=== PATIENT | male | born 1940 | race Caucasian/White ===

== ENCOUNTER 2024-10-31 12:18 | Inpatient (IN) | payer MEDICARE, SELFPAY ==
[2024-10-31] VITALS (42 sets, daily range): BP systolic 58–150; BP diastolic 28–100; BMI 31.5
[2024-10-31] MEDS: LOW STRENGTH ASPIRIN 81 MG PO (07:25)
[2024-10-31 08:54] LABS: ACT-LR - POC 374 Seconds (116-155)
[2024-10-31 09:24] LABS: ACT-LR - POC 319 Seconds (116-155)
--- NOTE | 2024-10-31 09:51 | ITS.CL.ANGIO ---
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
Angioplasty
Procedure Report:
CARDIAC CATHETERIZATION REPORT
Date of Procedure: 10/31/2024
Referring: Lavell Ramirez D.O.
INDICATION: Known coronary artery disease, accelerating angina, including rest angina.
PROCEDURE:
1. Left heart catheterization.
2. Coronary angiography.
3. Successful IFR of the proximal LAD.
4. Successful PCI of the mid and proximal RCA subtotal occlusion.
ACCESS:
6 [place] right common femoral artery using a modified Seldinger technique with a micropuncture kit under ultrasound guidance.
CATHETERS:
1. 5 [place] JR4.
2. 5 [place] JL 4.
3. 6 [place] JL 4 guiding catheter.
4. 6 [place] AL 0.75 guiding catheter.
HEMODYNAMIC DATA
Weight (kg): 96.6
AO (s/d/x, mmHg): 155/66/96
LV (s/x mmHg): 158/20
LEFT VENTRICULOGRAPHY: Not performed.
CORONARY ANGIOGRAPHY
Dominance: Right.
Left Main: Relatively short, bifurcating vessel. There is no coronary artery disease.
LAD: Normal size vessel with several small diagonals. There is a 60-70% lesion in the proximal vessel, immediately after the origin. There are at least moderate luminal irregularities with dense calcification throughout the remainder of the
vessel.
Ramus: Congenitally absent.
Circumflex: Large size, nondominant vessel giving rise to 1 large obtuse marginal which subsequently bifurcates into an upper and lower branch. A patent stent is visible in the obtuse marginal, spanning the bifurcation with a 90% lesion in the
ostium of the upper branch, likely related to plaque shift from the previous stent placement with ANTOLIN-3 flow.
RCA: Large size, dominant vessel with 99% subtotal occlusion in the proximal vessel into the mid vessel and faint collaterals from the left system, a 50% lesion in the distal RCA and a 60% lesion in the ostium of the RPDA, too small for
intervention.
INTERVENTION(S)
1. Successful IFR of the 60-70% proximal LAD lesion, demonstrating nonocclusive disease (IFR = 0.95).
2. Successful IVUS guided PCI of the 99% subtotal occlusion of the proximal and mid RCA (overlapping Medtronic Jean Paul Erath 3.0 x 38 ESTHER, 3.0 x 22 ESTHER, postdilated with a 3.25 NC balloon) with reduction in stenosis to 0%, restoring ANTOLIN-3 flow.
Narrative:
The decision was made to perform physiologic testing. The diagnostic catheter was removed over a wire and exchanged for a(n) 6 [place] JL 4 guiding catheter. The guiding catheter was advanced into the ascending aorta and seated in the left main
coronary artery. Additional heparin was given to obtain an ACT greater than 250 seconds. An iFR wire was zeroed outside of the body, then inserted into the guiding sheath. The wire was advanced and the transducer was normalized just outside of the
guiding catheter tip. The wire was advanced into the mid LAD. Three iFR measurements were taken. The lesion was determined to be nonocclusive (0.95).
We then turned our attention to the proximal RCA. The decision was made to proceed with percutaneous coronary intervention. The 6 [place] JL 4 guiding catheter was removed over a wire and a 6Fr AL 0.75 guiding catheter was advanced to the aortic
root and seated in the right coronary artery. Additional heparin was given and a Power Turn Flex wire was advanced into the proximal RCA, but would not cross the lesion. A whisper wire was advanced with a microcatheter support. With this support,
the whisper wire was able to cross the lesion and advanced into the distal RCA. The wire tip was freely mobile. The microcatheter was advanced through the lesion and the whisper wire was withdrawn. Micro injection through the microcatheter
confirmed that the microcatheter was intraluminal. The power turn flex wire was advanced through the microcatheter, which was then removed using a wire pinning technique.
During the course of wire exchange, the patient began to experience chest discomfort with some EKG changes. Even after removal of the microcatheter, the patient was still complaining of discomfort. Angiography confirmed that the wire was occlusive
across the lesion. Additional fentanyl and nitroglycerin were administered.
The 99% subtotal proximal RCA lesion was predilated with a 2.0 x 12 semi-compliant balloon to 12 geeta. Angiography showed mormonism of ANTOLIN-3 flow. The patient began to experience bradycardia with some relative hypotension. The patient was given
a bolus of IV fluids and atropine 1 mg IV. This restored normotension and an appropriate heart rate. Norepinephrine was primed and ready to administer, but the patient's blood pressure stabilized before administration.
A 3.0 x 20 semicompliant balloon was advanced into the mid RCA. The mid and proximal RCA were predilated to 12 geeta after angiography showed extension of the plaque burden into the mid vessel.
The semi-compliant balloon was removed and a Medtronic Jean Paul Erath 3.0 x 38 drug-eluting stent was advanced into the mid RCA, extending into the proximal RCA, around the proximal RCA curve. The stent was deployed at 12 atmospheres. The stent
balloon was removed.
The decision was made to perform intracoronary imaging. An IVUS catheter was advanced through the guiding catheter and into the ostium of the artery. Ring down was performed once the imaging crystal was no longer inside of the guiding catheter. The
IVUS catheter was advanced into the mid RCA, but could not advance beyond a bend in the mid RCA. Intravascular ultrasound was performed in a retrograde fashion using a slow pullback. Intracoronary imaging demonstrated good stent apposition with some
very mild underexpansion in the proximal stent. This also demonstrated significant plaque burden in the proximal RCA and ostial RCA.
The decision was made to proceed with percutaneous coronary intervention of the proximal/ostial RCA. The IVUS catheter was removed and a 3.0 x 22 drug-eluting stent was advanced. Meticulous care was taken while positioning the stent with the
distal aspect overlapping the distal stent in the proximal aspect at the ostium of the RCA. The stent was deployed at 12 atmospheres. The stent balloon was removed. A 3.25 x 20 noncompliant balloon was advanced into the stent with the assistance of
a guide liner and the entire stented segment was postdilated to 16 atmospheres.
IVUS was repeated throughout the entire segment, demonstrating good stent apposition and expansion, also confirming an intraluminal corkscrew segment which was responsible for the difficulty in passing the catheter initially.
The IVUS catheter was withdrawn. Angiography was performed in orthogonal views, confirming good stent expansion and an excellent angiographic result. The coronary wire was withdrawn and the guide was disengaged from the artery. The catheter was
removed over a standard J-wire.
The femoral artery was sealed with a 6 [place] Angio-Seal.
Approximately 10 minutes after completion of the procedure, I was called back into the room for an abrupt change in mental status. The patient, who had been conversant and coherent throughout the entire procedure was now unresponsive to commands.
He was able to speak, but not incoherent or complete sentences. He had full motor activity of his upper and lower extremities on examination. There was no isolating or lateralizing neurologic findings. The patient was transferred back to the Cath
Lab holding area and a stroke alert was called.
Closure Device: 6 [place] Angio-Seal.
Radiation (mGy): 1871.93
DAP (cm2.Gy): 133.88
Fluoroscopy time (minutes): 22.1
Sedation time (minutes): 99
CONCLUSIONS
1. Right dominant circulation with a patent stent in the obtuse marginal, and 90% lesion in the small upper branch of OM1 due to plaque shift with ANTOLIN-3 flow, a nonocclusive 60-70% lesion in the proximal LAD (IFR = 0.95), a 50% lesion in the
distal RCA, a 60% lesion in the ostium of a small, nonintervenable RPDA and a 99% subtotal occlusion of the proximal RCA leading into the mid vessel, status post successful IVUS guided PCI (overlapping Medtronic Minoa Erath 3.0 x 38 ESTHER, 3.0 x 22
ESTHER, postdilated with a 3.25 NC balloon) with reduction in stenosis to 0%, restoring ANTOLIN-3 flow.
2. Moderately elevated filling pressures (LVEDP = 20 mmHg at 96.6 kg).
3. Abrupt change in mental status, concerning for CVA. History of CVA after cardiac catheterization in October [address] [facility].
RECOMMENDATIONS:
1. Expectant management after cardiac catheterization via right common femoral approach.
2. Limited weight bearing for one week.
3. Dual antiplatelet therapy with aspirin and clopidogrel for at least 12 months, followed by aspirin indefinitely.
4. Stroke alert called. Neurology at bedside. CT/CTA ordered.
Copy to: Lavell Ramirez D.O., Mike Campos D.O.
Lloyd Rowe DO, FACC, FACP
--- NOTE | 2024-10-31 10:04 | RR ---
At end of cath, patient began to become agitated and aphasic. MD made aware. A Rapid Response was called on this patient, please see Rapid Response form.
[2024-10-31 10:24] LABS: Glucose - Point of Care 161 mg/dl (70-99)
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
[2024-10-31] MEDS: NSS (PRESERVATIVE FREE) 1 ML IV (10:45)
[2024-10-31] MEDS: ATIVAN 2 MG IV (10:45)
--- NOTE | 2024-10-31 11:00 | PTCARENOTE ---
Assumed care for pt post procedural with MAJOR ACCOUNT MANAGER/stroke alert. He is thrashing in the bed attempting to sit up. Unable to follow simple commands and follow instructions. Unable to perform NIH due to pt's mental status and thrashing He is moaning,
grimacing, with incomprehensible words. 6 staff members restraining pt to keep him from harming himself or developing a right femora hematoma. Pupils +2 sluggishly reactive. He is very strong all 4 extremities. 4 point soft restraints applied as
ordered by Glass Technicianjessica at the bedside upon pt arrival. Right knee immobilizer placed to prevent pt from bending until BR completed. +right DP pulses, weak right PT pulses. Right femoral dressing CDI, groin soft, no hematoma appreciated. It
does look slightly more swollen from the left groin. Right FA#20g protective catheter flushed and patent, see MAR for MEDs. Precedex was titrated as ordered. HR 84 and SR. Pt was reoriented unsuccessfully multiple times as he continue to attempt
tosit up and grab at the ceiling and staff members while phlebotomy being performed. #25 condom catheter placed. Called for daughter, Priscilla Oliveira to come to the bedside. Safe environment maintained. RN remains with pt at this time.
[2024-10-31] MEDS: HALDOL 2 MG IV (11:18)
[2024-10-31] MEDS: PRECEDEX 100 IV (11:19)
[2024-10-31 11:39] LABS: INR 1.14; PT 14.9 Sec (11.4-14.6)
[2024-10-31 12:07] LABS: APTT 168.1 Sec (23.4-35.0)
--- NOTE | 2024-10-31 12:07 | HPS.HSE ---
Family Physician
-
Family Physician: Mike Campos
Chief Complaint
-
Altered mental status
History of Present Illness
Patient is 84 years old male with CAD, prior postcatheterization CVA who underwent elective catheterization today with stenting to RCA. Over the procedure patient became agitated, disoriented with garbled speech. According to staff patient was not
able to converse and follow commands, became agitated around 9:[address] of the head showed no acute abnormalities other than old infarct. CT angiogram showed no large vessel thrombosis/occlusion
Upon transfer to intensive care unit patient remains agitated and disoriented.
Medical History
Past Medical History
Past Medical History: Reports CAD, CVA, Hypercholesterolemia and Other (Cognitive disorder)
Past Surgical History: Reports Other (Catheterization)
Social History
Tobacco: Non-smoker
Drug: None
Living: With Family
Family History
Family History: Not pertinent
Allergies / Home Medications
Allergies reflects when Allergies were last updated in [employer].
Home Medications with original date entered in [employer]
Allergy/Medication List:
Allergies
Allergy/AdvReac Type Severity Reaction Status Date / Time
Penicillins Allergy Severe Anaphylaxis Verified 10/31/24 07:12
Home Medications
aspirin 81 mg tablet,delayed release 81 mg PO QPM Blood Clot Prevention/Tx 10/31/24
atorvastatin 40 mg tablet 40 mg PO HS High Cholesterol 10/31/24
clopidogrel 75 mg tablet 75 mg PO QPM Blood Clot Prevention/Tx 10/31/24
folic acid 1 mg tablet 1 mg PO QPM Supplement 10/31/24
isosorbide mononitrate 30 mg tablet,extended release 24 hr 30 mg PO DAILY Blood Pressure 10/31/24
metoprolol tartrate 25 mg tablet 12.5 mg PO BID Blood Pressure 10/31/24
quetiapine 25 mg tablet 25 mg PO HS Mental Health/Anxiety 10/31/24
Review of Systems
-
Unable to obtain full review of systems at this time due to: Other (Altered mental status)
Physical Exam
Vital Signs
Vital Signs
Temp Pulse Resp BP Pulse Ox
97.4 F 65 16 107/60 96
10/31/24 06:53 10/31/24 06:53 10/31/24 06:53 10/31/24 06:53 10/31/24 06:53
Physical Exam
General: Well Developed, Well Nourished and No Apparent Distress
HEENT: NormoCephalic, Moist mucous membranes and Atraumatic
Respiratory: Clear
Cardiac: S1/S2 and Regular Rhythm; No Murmur or Rub
GI: Soft, Non Tender, Non Distended and Normal Bowel Sounds; No Organomegaly
Rectal: Deferred by Provider
Musculoskeletal: No Clubbing, No Cyanosis and No Edema
Skin: No Rash
Neuro: Awake, Nonfocal/grossly intact and Other (Disoriented not following commands, garbled speech, moving all 4 extremities requiring restraints.)
Laboratory Results
-
Laboratory Results
PT Cancelled 10/31/24 11:14
INR Cancelled 10/31/24 11:14
Impression/Plan
-
IMPRESSION:
Acute change in mental status with agitation, disorientation, aphasia following left heart cath with PCI
Prior post PCI right hemispheric CVA (frontal/cerebellar stroke)
Suspected cognitive disorder according to information provided by patient family.
CAD status post RCA PCI.
PLAN:
Acute change in mental status with agitation, disorientation, aphasia following left heart cath with RCA PCI.
Agitated, although with no focal findings on exam.
CT scan of the head with no acute abnormalities.
CTA with no large artery occlusion.
Differential diagnosis toxic metabolic encephalopathy secondary to sedatives in the patient with prior frontal CVA (Wernicke's aphasia), versus less likely acute ischemic CVA, versus less likely seizure.
Currently no clear indication for lytic therapy.
Monitor closely in ICU.
Neurologic checks.
Cardiac monitoring
Consider echo
Reimaging if clinically indicated.
Aspiration precautions.
Continue DAPT: Aspirin and Plavix initiated post PCI
Continue statin
DVT prophylaxis with Lovenox.
Avoid hypotension while on metoprolol and Imdur.
If remains agitated may require Precedex for sedation to avoid post PCI hemorrhagic complication with agitation while patient is thrashing
Continue Seroquel
Speech and swallow evaluation when mental status allows
Basic lab work including CBC BMP pending
Intensity/neurology/cardiology consultation
--- NOTE | 2024-10-31 12:09 | PTCARENOTE ---
Hypotensive 68/42(51), HR 58. Dr. Arreguin notified via TT, however Dr. Rowe walked into the room in the meantime and ordered 500ml LR fluid bolus then Norepinephrine for map>65 if bolus unsuccessful. Pt's daughter now at the bedside and informed
me that Dr. Martin had updated her on his neurological event. Dr. Rowe then updated her at the bedside. She was provided information regarding visiting hours and how to reach the ICU for updates. She also informed me that her Father's eye glasses
had a missing lens in it prior to admission.
[2024-10-31] MEDS: LR 500 IV (12:15)
[2024-10-31] MEDS: LEVOPHED 250 IV (12:39)
--- NOTE | 2024-10-31 12:39 | PTCARENOTE ---
Norepinephrine initiated as per Dr. Rowe for MAP 51. Discussed the plan of care for possible CT abdomen give hypotensive episode with his mental status changes post procedure. Will transport to CT scan once MAP>[address] Rowe. Daughter Priscilla
is aware of the plan of care.
--- NOTE | 2024-10-31 12:53 | CON.INTV ---
Consultation
Consultation Request
Date/Time Consultation Requested: 10/31/2024
Date/Time Consultation Performed: 10/31/2024
Requesting Provider: Dr. Rowe
Performing Provider: Dr. Nitesh Arreguin
Reason for Consultation: Confusion/toxic metabolic encephalopathy
Medical History
-
History of Present Illness:
84-year-old man with history of coronary artery disease, prior history of postcatheterization frontal lobe CVA who underwent elective catheterization today undergoing complex interventional procedure to the RCA.
Patient became agitated, confused, disoriented, with garbled speech postprocedure. Patient became agitated around 9:40 AM. In general he is conversant, follows commands.
Underwent CT of the head that showed no acute abnormalities. CT angiograms of the cervical showed no evidence for large vessel thrombosis.
Emergent evaluation at the bedside in the critical care unit by me, patient was moving 4 extremity, he was agitated, opening eyes, able to answer questions but he was confused.
Unable to follow commands.
He needed restraints.
The arterial puncture was on the right groin and he is to stay on the supine position for at least 2 hours.
Neurology came to the bedside: Since there was no large vessel occlusion no evidence indication for intervention. Patient was nonfocal. High risk of bleeding with thrombolysis. We opted not to intervene.
Subsequently became hypotensive after receiving Ativan, Haldol and Precedex. Required low-dose Levophed.
Discussed with cardiology will send the patient for CT abdomen pelvis later today to rule out retroperitoneal hematoma as the patient was agitated post arterial puncture.
Repeat H&H later today.
Past Medical History
Past Medical History: Other (See assessment and plan section)
Social History
Tobacco: Non-smoker
Alcohol: None
Drug: None
Living: With Family
Family History
Family History: Unable to Obtain
Allergies / Home Medications
Allergies
Allergy/AdvReac Type Severity Reaction Status Date / Time
Penicillins Allergy Severe Anaphylaxis Verified 10/31/24 07:12
Home Medications
�Medication �Instructions �Recorded �Confirmed �Last Taken �Type
aspirin 81 mg tablet,delayed 81 mg PO QPM Blood Clot 10/31/24 10/31/24 10/30/24 20:00 History
release Prevention/Tx 1 tab
atorvastatin 40 mg tablet 40 mg PO HS High Cholesterol 10/31/24 10/31/24 10/30/24 22:00 History
1 tab
clopidogrel 75 mg tablet 75 mg PO QPM Blood Clot 10/31/24 10/31/24 10/30/24 20:00 History
Prevention/Tx 1 tab
folic acid 1 mg tablet 1 mg PO QPM Supplement 10/31/24 10/31/24 10/30/24 20:00 History
1 tab
isosorbide mononitrate 30 mg 30 mg PO DAILY Blood Pressure 10/31/24 10/31/24 10/31/24 05:30 History
tablet,extended release 24 hr 1 tab
metoprolol tartrate 25 mg tablet 12.5 mg PO BID Blood Pressure 10/31/24 10/31/24 10/31/24 05:30 History
0.5 tab
quetiapine 25 mg tablet 25 mg PO HS Mental Health/Anxiety 10/31/24 10/31/24 10/30/24 22:00 History
1 tab
Review of Systems
-
Unable to Obtain full review of systems at this time due to: Acuity (Delirium)
Vitals / Labs / Diagnostic Testing
Vital Signs
Temp Pulse Resp BP Pulse Ox
97.4 F 65 16 107/60 96
10/31/24 06:53 10/31/24 06:53 10/31/24 06:53 10/31/24 06:53 10/31/24 06:53
Laboratory Results
10/31/24 10/31/24 10/31/24
11:14 11:14 11:14
PT Cancelled 14.9 H
INR Cancelled 1.14
APTT 168.1 H*
Diagnostic Testing:
Physical Exam
-
HEENT: Normocephalic
Cardiovascular: S1/S2
Respiratory: Non-Labored Respirations
GI: Soft and Non Distended
Neurology: Awake and Other (Moving 4 extremities, confused. Unable to follow commands. Restless)
Skin: Warm and Other (Right groin without significant hematoma.)
General: Respiratory Distress (Agitated.)
Assessment
-
84-year-old man with history of coronary artery disease, underwent complex interventional procedure with RCA stent. Developed agitation, confusion and slurred speech after procedure. CT head negative for acute CVA. He was transferred to the
critical care unit for stabilization and behavioral control as he has to stay laying flat in bed for at least 2 hours postprocedure.
-
Altered mental status-toxic metabolic encephalopathy/aphasia/? Drug
In the setting of history of prior CVA/brain atrophy
CT head 10/31/2024, old infarction on the right frontal lobe. No evidence for acute abnormality-reviewed
CT angiogram: No evidence for large vessel occlusion. Reviewed
Hypotension: Likely due to sedatives.
Rule out retroperitoneal hematoma
Status post Successful PCI of the mid and proximal RCA subtotal occlusion. 10/31/2024
Conditions present prior admission:
History of frontal/cerebellar stroke with chronic encephalopathy
Prior history of CVA post cath/stent-
Hypercholesterolemia
Cognitive impairment
Assessment and plan:
Critically ill: Agitated, restless, not following commands.
Discussed with neurology-supportive care and close observation.
No indication for large vessel occlusion removal.
High risk for bleeding with thrombolytics. Will hold.
Continue with neurovascular checks.
Patient usually on Quetiapine in the outpatient
-
Maintain supine position per cardiology recommendations
End-tidal CO2 monitoring
Oxygen as needed to maintain pulse ox above 90%
-
Chemical restraint/mechanical restraints as the patient has to stay flat for several hours postprocedure.
Monitor right groin
Precedex started: Discontinued after 1 hour as the patient was very sedated and hypotensive.
Received Haldol and also Ativan.
No further sedatives required at this point
Discontinue Precedex
-
Hypotension: Suspect drug effect.
IV fluids were given
Discussed with Dr. Rowe
Obtain CT abdomen pelvis later today to rule out retroperitoneal hematoma.
H&H later today.
Serial abdominal exams
-
N.p.o.
Head of elevation
Hold antihypertensive
Antiplatelets per cardiology
-
Critical care statement: A total of 38 minutes of critical care time was provided for this patient today. This includes management of unstable vital signs, evaluation of the patient at bedside, reviewing the patient's pertinent medical records
including ventilator settings, arterial blood gases, radiographs, microbiology, laboratory evaluations and discussion with primary team, critical care nursing, and respiratory therapy.
--- NOTE | 2024-10-31 13:32 | W.PN.UPDATE ---
Update Note
Progress Note Update
I assessed the patient in the ICU.
There is low suspicion for embolic/thrombotic CVA.
CT head r/o ICH.
CTA shows no large vessel occlusion.
The patient has required aggressive chemical restraint and has subsequently become hypotensive (with some bradycardia).
Dexmedetomidine discontinued and LR 500 mL bolus given.
Limited response lead to initiation of low dose norepinephrine.
He is stuporous, not answering questions (although appropriate for the degree of sedation given).
Access site is C/D/I.
Nursing reports that he was thrashing and moving around.
This raises the possibility of RPB.
CBC ordered.
STAT CT abdomen/pelvis (no contrast) ordered. Ok to take to CT scanner when MAP > 65 mmHg.
Patient's daughter is at bedside and has been updated.
[2024-10-31 13:38] LABS: Vitamin B12 205 pg/ml (239-931)
[2024-10-31 16:04] LABS: Hematocrit 38.6 % (39.0-52.0); Hemoglobin 12.8 g/dL (13.0-18.0); Mean Corp Hgb Conc. 33.2 g/dL (33.0-37.0); Mean Corpuscular Volume 90.4 fL (80.0-94.0); Mean Platelet Volume 11.1 fL (7.4-10.4); Platelet Count 227 10^3/uL (130-400); Red Blood Cell Count 4.27 10^6/uL (4.70-6.10); Red Cell Dist. Width 13.1 % (11.5-14.5); White Blood Cell Count 9.8 10^3/uL (4.8-10.8)
[2024-10-31 16:10] LABS: Blood Urea Nitrogen 24 mg/dl (9-20); Calcium 8.8 mg/dl (8.4-10.2); Carbon Dioxide 26 mmol/L (22-30); Chloride 104 mmol/L (98-107); Estimated Creatinine Clearance 47 ml/min; Glucose 165 mg/dl (70-99); Potassium 4.4 mmol/L (3.5-5.1); Sodium 137 mmol/L (135-145)
[2024-10-31] MEDS: ASPIR LOW (ENTERIC COATED) 81 MG PO (18:59)
[2024-10-31] MEDS: PLAVIX 75 MG PO (18:59)
[2024-10-31] MEDS: FOLVITE 1 MG PO (18:59)
--- NOTE | 2024-10-31 19:14 | PTCARENOTE ---
Received pt via bedside handoff. Pt AAOx3, able to TOLBERT w/ generalized weakness, hand tremors present while eating, afebrile. Sinus gabrielle, pulses weak but palpable, also present with Doppler. 96% on RA, lungs sound clear but diminished at bases.
Hypoactive bowel sounds in all 4Q. #25 condom cath CDI draining clear yellow urine. Skin pale and warm, right femoral dressing CDI. Levo gtt running see flowsheet. Call tobar at bedside.
[2024-10-31] MEDS: SEROQUEL 25 MG PO (21:06)
[2024-10-31] MEDS: LIPITOR 40 MG PO (21:06)
[2024-11-01] VITALS (34 sets, daily range): BP systolic 80–138; BP diastolic 34–109; PULSE 64; BMI 30.8
--- NOTE | 2024-11-01 | PTCARENOTE ---
All systems reassessed. Hygiene performed, call tobar at bedside.
[2024-11-01] MEDS: LEVOPHED 250 IV (00:40)
--- NOTE | 2024-11-01 04:00 | PTCARENOTE ---
All systems reassessed, labs drawn, hygiene performed, call tobar at bedside.
[2024-11-01 04:03] LABS: Hematocrit 39.3 % (39.0-52.0); Hemoglobin 13.3 g/dL (13.0-18.0); Mean Corp Hgb Conc. 33.8 g/dL (33.0-37.0); Mean Corpuscular Hgb 30.4 pg (27.0-31.0); Mean Corpuscular Volume 89.7 fL (80.0-94.0); Mean Platelet Volume 11.2 fL (7.4-10.4); Platelet Count 223 10^3/uL (130-400); Red Blood Cell Count 4.38 10^6/uL (4.70-6.10); Red Cell Dist. Width 13.1 % (11.5-14.5); White Blood Cell Count 10.6 10^3/uL (4.8-10.8)
[2024-11-01 04:36] LABS: Blood Urea Nitrogen 19 mg/dl (9-20); Calcium 9.4 mg/dl (8.4-10.2); Carbon Dioxide 24 mmol/L (22-30); Chloride 104 mmol/L (98-107); Estimated Creatinine Clearance 50 ml/min; Glucose 173 mg/dl (70-99); HDL Cholesterol 46 mg/dl; LDL Cholesterol, Calculated 77 mg/dl; Potassium 3.9 mmol/L (3.5-5.1); Sodium 139 mmol/L (135-145); Total Cholesterol 152 mg/dl (50-199); Triglyceride 148 mg/dl (10-149); Very Low Density Lipoprotein 29 mg/dl (0-30); eGFR 58.89
--- NOTE | 2024-11-01 07:36 | PTCARENOTE ---
Received pt in bed. He has pulled off his gown. He is confused and unable to remember the events of the last 24 hours. He was informed of the events of the last 24 hours. He is very pleasant and cooperative at this time. He was informed of the plan
of care to taper off his Norepinephrine drip and to sit in the chair. He was agreeable. RA pulse ox 99%. Lungs CTA dim in the bases. +BSX4. He states he is hungry. #25 condom catheter secured with clear urine in collection bag. Mouth care performed.
Safe environment maintained.
[2024-11-01 08:40] LABS: Glycohemoglobin (HgbA1c) 7.2 % (4.0-5.6)
--- NOTE | 2024-11-01 09:30 | PTCARENOTE ---
Condom catheter fell off. AM care performed and cleansed skin with CHG wipes. He states at home he has urinary incontinence. He was a 2 assist to the chair using his single point cane from home. Tremulous, with small shuffling steps. He verbalized
that his balance has been bad. I informed him that can happen after stroke. Chair alarm in place, and he was instructed multiple times to hit the call tobar if he needed to use the urinal. He demonstrated hitting the correct nurse button. Safe
environment maintained.
--- NOTE | 2024-11-01 10:13 | W.PN.CD ---
Addendum entered and electronically signed by Lloyd Rowe DO 11/01/24 13:50:
Reassessed this morning.
Norepinephrine off.
Patient feels well.
Restart metoprolol (BP currently 130/101/107).
Hold isosorbide mononitrate (angina is hopefully relieved).
If patient tolerates resumption of home medications, we can likely discharge this afternoon.
Original Note:
Today's Communication / Plan
-
Wean norepinephrine.
Increase atorvastatin to 80 mg daily.
Current blood pressure will not permit uptitration of anti-anginal medications or the addition of diuretic.
Impression / Plan
-
Impression/Plan: 84 y/o male with HTN, HLD and CAD with prior PCI admitted after elective cardiac catheterization/PCI of proximal/mid RCA for accelerating/unstable angina, subsequently complicated by an acute neurologic episode and hypotension
requiring norepinephrine.
#CAD
-Chronic, progressive.
-Cardiac catheterization showed a non-inclusive 60-70% pLAD lesion (iFR = 0.95), patent stent in the OM and a new, subtotal occlusion of the pRCA.
-S/P PCI of the proximal/mid RCA (overlapping [employer] [place] 3.0 x 38 ESTHER, 3.0 x 22 ESTHER, post dilated with a 3.25 NC balloon) with reduction in stenosis to 0%, restoring ANTOLIN III flow.
-Maintain DAPT with aspirin and clopidogrel for at least 12 months, followed by aspirin indefinitely.
-Metoprolol/isosorbide mononitrate on hold while requiring norepinephrine.
-Continue atorvastatin 40 mg daily.
#Neurologic Episode
-Acute, resolving. Similar to prior event after catheterization/PCI at [facility] (10/2023).
-Unclear source. I doubt that this is a CVA as there are no localizing symptoms.
-I suspect that this may be a delayed contrast reaction vs. a sedation reaction.
#Hypotension
-Acute, resolving.
-Clearly related to the neurologic episode.
-Possibly vasodilation as part of a contrast reaction (anaphylactoid) vs. histamine release from fentanyl (opiate) administration.
-Wean norepinephrine.
#HLD
-Chronic.
-Total cholesterol = 152, LDL = 77, HDL = 46, Triglycerides = 148.
-Increase atorvastatin to 80 mg daily.
-Goal LDL < 55.
Critical Care Time = 48 minutes.
Subjective/Interval History:
Post PCI, the patient developed an acute neurologic episode of altered mental status.
Stroke alert called. Neurology consulted. CT head negative. CTA head/neck r/o large vessel occlusion but did comment on abnormality on supraclinoid ICA, recommended US (ordered).
The patient was sedated in order to obtain CT/CTA. This was subsequently complicated by hypotension. Norepinephrine started and the patient was sent for a CT abdomen/pelvis which r/o RPB.
The patient's neurologic status progressively improved over the course of the day. He was essentially back to normal by the end of the day yesterday.
DATA:
Cardiac Catheterization/PCI, 10/31/2024:
CONCLUSIONS
1. Right dominant circulation with a patent stent in the obtuse marginal, and 90% lesion in the small upper branch of OM1 due to plaque shift with ANTOLIN-3 flow, a nonocclusive 60-70% lesion in the proximal LAD (IFR = 0.95), a 50% lesion in the
distal RCA, a 60% lesion in the ostium of a small, nonintervenable RPDA and a 99% subtotal occlusion of the proximal RCA leading into the mid vessel, status post successful IVUS guided PCI (overlapping [employer] [place] 3.0 x 38 ESTHER, 3.0 x 22
ESTHER, postdilated with a 3.25 NC balloon) with reduction in stenosis to 0%, restoring ANTOLIN-3 flow.
2. Moderately elevated filling pressures (LVEDP = 20 mmHg at 96.6 kg).
3. Abrupt change in mental status, concerning for CVA. History of CVA after cardiac catheterization in October 2023 at [facility].
CT Head, 10/31/2024:
IMPRESSION:
Examination limited by mild to moderate motion artifact.
No evidence for acute intracranial hemorrhage.
Hyperdensity within the left supraclinoid ICA as well as portions of the visualized left anterior cerebral and middle cerebral arteries. Findings suggest the possibility of hyperdense thrombus in the distribution of the left ICA.
ASPECT score: 10, with limitation by motion artifact.
CTA Head, 10/31/2024:
IMPRESSION:
Examination is limited by significant motion artifact, which is particularly present in the region of the carotid bulbs and proximal internal carotid arteries bilaterally.
There is atherosclerotic disease and calcification involving the right carotid bulb and proximal right ICA. Although accurate measurement cannot be made, concern is raised that there could be a greater than 50% diameter reduction.
Calcification involving the left carotid bulb, most likely less than 50% diameter reduction, but this cannot be stated with confidence.
Consider correlation with cerebrovascular ultrasound when clinically feasible.
No evidence for large vessel occlusion or high-grade stenosis within the intracranial circulation.
Dominant right vertebral artery with smaller caliber left vertebral artery. No evidence for significant narrowing or dissection, given the limitation of motion.
CT Abdomen/Pelvis, 10/31/2024:
IMPRESSION:
No evidence for retroperitoneal or extraperitoneal hematoma. No evidence for rectus hematoma.
Probably small gallstones in the dependent portion of the gallbladder as well as vicarious excretion of contrast.
2 low-density hepatic lesions, one of which is just superior to the gallbladder. These lesions are nonspecific, possibly hemangiomata. No significant stranding of the fat surrounding the gallbladder, with no findings that would be suggestive of
gallbladder perforation, although the low-density lesion is just off the superior margin of the gallbladder.
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 There is a small fat-containing right lateral abdominal wall hernia.
1.6 cm round mass arising from the lateral lower pole of the left kidney. Main differential considerations of hyperdense cyst and small renal cell neoplasm. Further evaluation is advised, which could begin with a dedicated left kidney ultrasound
with attention to the lower pole.
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
Physical Exam
Vital Signs/Labs
Vital Signs
Temp Pulse Resp BP Pulse Ox
37.0 C 72 22 93/69 100
11/01/24 07:56 11/01/24 09:40 11/01/24 09:40 11/01/24 09:32 11/01/24 09:40
10/30/24 10/31/24 11/01/24
11:59 11:59 11:59
Actual Weight 96.7 kg 94.4 kg
11/01/24 03:39
11/01/24 03:39
PT 14.9 Sec (11.4-14.6) H 10/31/24 11:14
PT Cancelled 10/31/24 11:14
INR 1.14 10/31/24 11:14
INR Cancelled 10/31/24 11:14
APTT 168.1 Sec (23.4-35.0) H* 10/31/24 11:14
Triglycerides 148 mg/dl (10-149) 11/01/24 03:39
LDL Cholesterol, Calc 77 mg/dl 11/01/24 03:39
VLDL Cholesterol, Calc 29 mg/dl (0-30) 11/01/24 03:39
HDL Cholesterol 46 mg/dl 11/01/24 03:39
Physical Exam
Constitutional: No acute distress and Comfortable
EENT: Anicteric and Moist mucous membranes
Cardiovascular: Rhythm & rate is regular, Pedal edema is absent, JVD pressure is normal, S1S2 is normal and Murmur/rub/gallop absent
Respiratory: Respiratory effort normal, Lungs clear to auscul., Wheeze Absent, Crackles Absent and Rhonchi Absent
GI: Soft, Distention absent, Flat, Non tender and Normal bowel sounds
Neuro/Psych: AO x 3
Other: Cath Site (Right common femoral access site is C/D/I.)
Data Reviewed
-
Date of Service: November 01, 2024
Medical Decision Making: Reviewed Test Results, Tests Ordered, Independent Historian Assessment, Test Interpretation and Review of Case with other Provider
EKG: Tracing Personally Visualized and interpreted and Report Reviewed by me
X-Ray/CT/US/MRI/NUC/PET: Image Personally Visualized and interpreted and Report Reviewed by me
Medical Tests (PFT, Pathology etc): Image Personally Visualized and interpreted and Report Reviewed by me
Labs: Labs Reviewed by me
Old Records: Reviewed
--- NOTE | 2024-11-01 11:05 | CM ---
Addendum entered by Jeet Romero 11/01/24 14:30:
Discharge order noted.
CM met with pt and daughter Priscilla at bedside. Pt's daughter stated she came to transport her father home today and daughter stated that pt has many family members in the house to care for him and he will not need after care VN services.
D/C plan: home no needs. Daughter to transport.
Original Note:
CM following re: discharge planning.
Discussed in Rounds, reviewed pt's chart, met with pt.
Pt is an 84 year old male, admitted with primary dx of Altered mental status-toxic metabolic encephalopathy.
Pt reports he lives with a friend in a [place] and has 96 year old sister who lives in [place] and he does not know whether or not his sister is still alive and pt stated he does not have any other immediate family around. Later pt stated he lives
with daughter in a [place], has 2 supportive children. Per RN pt lives with daughter and daughter was here yesterday. Pt reports he has a walker, does not use it. 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 Pt
stated he feels being very weak and he is not sure whether or not he can walk independently.
PT and OT will evaluate the pa to determine a level of care at discharge.
PCP: Mike Campos
Pharmacy: [facility]
D/C plan: most likely home with VN services if recommended by PT/OT. Awaiting for PT/OT evaluations and recommendations
CM will follow with discharge plan updates as hospitalization progresses
--- NOTE | 2024-11-01 11:47 | PTCARENOTE ---
Pt remains unclear of the events of his hospitalization. He was reminded of the events of his hospitalization. He was attempting to get out of the chair to look for his daughter. He was reminded of where she was and that she would be here later
today. He was satisfied with that and reassured that he is doing better and that we are waiting for the physicians.
--- NOTE | 2024-11-01 11:49 | W.PN.HOSP.TC ---
Today's Communication/Plan
-
Wean off Levophed
PT assessment
Assessment / Plan
Assessment / Plan
Impression:
Acute change in mental status with agitation, disorientation, aphasia following left heart cath with PCI.
Transient hypotension secondary to medication effect
Prior post PCI right hemispheric CVA (frontal/cerebellar stroke)
Suspected cognitive disorder according to information provided by patient family.
CAD status post RCA PCI..
Plan:*
Acute change in mental status most likely secondary to drug-induced delirium/TME
No clinical evidence of CVA.
CTA head with no acute abnormalities.
CTA with no large artery occlusion.
Mental status improved and back to baseline.
Carotid ultrasound pending
Transient hypotension requiring IV fluids/vasopressor likely due to medication effect improving.
Weaning off Levophed.
CAD status post RCA PCI.
Continue DAPT: Aspirin and Plavix.
Continue statin.
Suspect vascular dementia.
Continue Seroquel.
Avoid sedatives.
Speech therapy is seeing.
Diet has been advanced.
Physical therapy assessment with discharge planning
Anticipated Discharge: 24 - 48 hours
Subjective/Interval History
-
Date of Service: November 01, 2024
Objective Data
-
Labs:
Laboratory Results
11/01/24
03:39
WBC 10.6
Hgb 13.3
Hct 39.3
Plt Count 223
Sodium 139
Potassium 3.9
Chloride 104
Carbon Dioxide 24
BUN 19
Creatinine 1.2
Glucose 173 H
Calcium 9.4
Vital Signs:
Vital Signs
Temp Pulse Resp BP Pulse Ox
98.6 F 72 22 93/69 100
11/01/24 07:56 11/01/24 09:40 11/01/24 09:40 11/01/24 09:32 11/01/24 09:40
I&O
10/31/24 11/01/24 11/02/24
06:59 06:59 06:59
Intake Total 1270.0 / 1292.5 525.0 / 525.0
Output Total 1070 / 1070 200 / 200
Balance 200.0 / 222.5 325.0 / 325.0
Physical Exam
-
General: Well Developed and No Apparent Distress
HEENT: Normocephalic, Atraumatic and Moist Mucous Membranes
Respiratory: Clear to Auscultation
Cardiac: Regular Rhythm and S1/S2; Negative Murmur, Rub or Gallop
GI: Soft, Nontender, Nondistended and Normal Bowel Sounds; Negative Organomegaly
Rectal: Deferred by Provider
Musculoskeletal: No Clubbing, No Cyanosis and No Edema
Skin: Negative Rash
Neuro: Nonfocal/Grossly Intact
--- NOTE | 2024-11-01 12:14 | W.PN.INTV ---
Today's Communication / Plan
Recommendations
Weaned off Levophed
Continue cardiac management
transfer out of the ICU to IVU.
Critical care team will sign off
Assessment
-
84-year-old man with history of coronary artery disease, underwent complex interventional procedure with RCA stent. Developed agitation, confusion and slurred speech after procedure. CT head negative for acute CVA. He was transferred to the
critical care unit for stabilization and behavioral control as he has to stay laying flat in bed for at least 2 hours postprocedure.
-
Altered mental status-toxic metabolic encephalopathy/aphasia/? Drug
In the setting of history of prior CVA/brain atrophy
CT head 10/31/2024, old infarction on the right frontal lobe. No evidence for acute abnormality-reviewed
CT angiogram: No evidence for large vessel occlusion. Reviewed
Hypotension: Likely due to sedatives.
Rule out retroperitoneal hematoma
Status post Successful PCI of the mid and proximal RCA subtotal occlusion. 10/31/2024
Conditions present prior admission:
History of frontal/cerebellar stroke with chronic encephalopathy
Prior history of CVA post cath/stent-
Hypercholesterolemia
Cognitive impairment
Assessment and plan:
Mental status back to baseline
Precedex has been weaned off
Sitting out of bed
Denies any complaints
Neurologically intact.
Suspect decompensation due to medications/delirium in the setting of history of CVA and age
-
Currently on low-dose vasopressors/Levophed-wean off as able.
No evidence for infection
No hematoma
Hemoglobin is stable
CT abdomen pelvis without retroperitoneal hematoma.
-
Cardiology to follow.
Continue cardiac manage
-
Advance diet.
-
If Levophed is weaned off then transferred to telemetry.
If transferred to telemetry critical care team will sign off.
-
Subjective Dataa
Subjective Data
Date of Service:
Date of Service: November 01, 2024
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
Subjective:
Denies any new complaints
Mental status back to baseline
Denies shortness of breath
Sitting out of bed.
Review of Systems
General: Fever (n)
Cardiopulmonary: Dyspnea (none at rest)
GI: Abdominal Pain (n) and Nausea (n)
Neuro: Headache (n)
Objective Data
Data Reviewed
Vital Signs / I&O / Oxygen:
Vital Signs
Temp Pulse Resp BP Pulse Ox
97.7 F 72 22 93/69 100
11/01/24 11:25 11/01/24 09:40 11/01/24 09:40 11/01/24 09:32 11/01/24 09:40
Intake and Output
10/31/24 11/01/24 11/02/24
06:59 06:59 06:59
Intake Total 1270.0 / 1292.5 525.0 / 525.0
Output Total 1070 / 1070 200 / 200
Balance 200.0 / 222.5 325.0 / 325.0
SaO2 100
Nasal Cannula flow liters per 3
minute
Physical Exam
General: Comfortable
HEENT: Normocephalic
Cardiovascular: S1-S2
Respiratory: Non-Labored Respirations
GI: Soft and Non Distended
Neurology: Awake, Alert, Oriented and No Motor Deficits
Skin: Warm
Labs/Micro/Reports
Lab Data
11/01/24 03:39
11/01/24 03:39
[2024-11-01] MEDS: LOPRESSOR 12.5 MG PO (13:07)
--- NOTE | 2024-11-01 13:10 | PN.CDI ---
CDI
- -
CDI:
Physician Documentation Request
Admit Date: 10/31/24 12:18
Dear Doctor Sailaja,
Please review the following and provide your response in the progress notes.
Current documentation includes a diagnosis of hypotension.
Clinical Indicators:
- Admit for change in mental status following left heart cath with PCI
- 11/01 PN 'Transient hypotension requiring IV fluids/vasopressor likely due to medication effect improving'
- 10/31 Cardiology 'The patient has required aggressive chemical restraint and has subsequently become hypotensive'
- 'Dexmedetomidine discontinued and LR 500 mL bolus given'
- 10/31-11/01 patient on Levophed
Please clarify which of the following is the most likely etiology of the above symptoms and treatment rendered:
Cardiogenic shock
Shock, unknown type
Postoperative shock, type unknown
Hypotension only - postoperative, drug induced
Other
Use of terms such as suspected, likely, concern for, or probable (associated with a specific diagnosis that is being evaluated, monitored, or treated as if it exists) are acceptable and can be coded in the inpatient setting, when documented at the
time of discharge.
Thank you,
Shivam Landa RN
CDI Specialist
Please use your independent medical judgment in providing your response.
--- NOTE | 2024-11-01 13:59 | SUR.OPER ---
TT Colin Menard and Jae for a timeframe regarding possible discharge. Metoprolol dose administered as ordered. Daughter at the bedside. Physical therapist notified via TT for consult.
--- NOTE | 2024-11-01 14:25 | W.DS.TRANS ---
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
-
Discharge Instructions:
Discharge Diagnosis/Procedures Angioplasty and stent x2 to Right Coronary
artery
TME
Diet Low Cholesterol,Diabetic, Carb Controlled
Driving Restrictions No driving for 24 hours
Other Services Cardiac Rehab
Instructions:
Stand-Alone Forms: DC Instructions- Cath/EP Lab
Changes to Home Medications: Yes
Discharge Medications:
DC Medications w/original date entered in [facility]
aspirin 81 mg tablet,delayed release 81 mg PO QPM Blood Clot Prevention/Tx 10/31/24
atorvastatin 40 mg tablet 40 mg PO HS High Cholesterol 10/31/24
clopidogrel 75 mg tablet 75 mg PO QPM Blood Clot Prevention/Tx 10/31/24
folic acid 1 mg tablet 1 mg PO QPM Supplement 10/31/24
metoprolol tartrate 25 mg tablet 12.5 mg PO BID Blood Pressure 10/31/24
quetiapine 25 mg tablet 25 mg PO HS Mental Health/Anxiety 10/31/24
Home Medication Changes
Imdur stopped
Pending Results: No
[2024-11-01] MEDS: FOLTX 1 TABLET PO (15:23)
--- NOTE | 2024-11-01 15:29 | PTCARENOTE ---
Clarifying discharge with Colin Rowe and Sailaja. Dr. Martin ordered Head CT prior to discharge. Per Dr. Rowe, Dr. Martin & Dr. Menard he is ok for discharge.
--- NOTE | 2024-11-01 15:56 | PTCARENOTE ---
Pt discharged, left with daughter with literature on CAD, Stent book and cards. IV and telemetry removed. RN transported to private vehicle via W/C.
== END 2024-11-01 16:01 | disposition home or self-care (01) | DRG 321 ==
LOC: ICU 12:18
PROVIDERS: Internal Medicine Cardiovascular Disease; Nurse Practitioner; ADMITTING PHYSICIAN Internal Medicine; CONSULT PHYSICIAN Psychiatry & Neurology Neurology; FAMILY PHYSICIAN Family Medicine; OTHER PHYSICIAN Internal Medicine Critical Care Medicine
PROC: 3E033XZ Introduction of Vasopressor into Peripheral Vein, Percutaneous Approach (ICD-10-PCS; 2024-10-31)
PROC: 027035Z Dilation of Coronary Artery, One Artery with Two Drug-eluting Intraluminal Devices, Percutaneous Approach (ICD-10-PCS; 2024-10-31)
PROC: B2111ZZ Fluoroscopy of Multiple Coronary Arteries using Low Osmolar Contrast (ICD-10-PCS; 2024-10-31)
PROC: B240ZZ3 Ultrasonography of Single Coronary Artery, Intravascular (ICD-10-PCS; 2024-10-31)
PROC: 4A033BC Measurement of Arterial Pressure, Coronary, Percutaneous Approach (ICD-10-PCS; 2024-10-31)
PROC: 4A023N7 Measurement of Cardiac Sampling and Pressure, Left Heart, Percutaneous Approach (ICD-10-PCS; 2024-10-31)
DX: I25.110 Atherosclerotic heart disease of native coronary artery with unstable angina pectoris (principal); G92.8 Other toxic encephalopathy; F01.54 Vascular dementia, unspecified severity, with anxiety; F05 Delirium due to known physiological condition; I10 Essential (primary) hypertension; E78.00 Pure hypercholesterolemia, unspecified; R45.1 Restlessness and agitation; F80.2 Mixed receptive-expressive language disorder; G31.9 Degenerative disease of nervous system, unspecified; R41.89 Other symptoms and signs involving cognitive functions and awareness; I95.2 Hypotension due to drugs; T42.75XA Adverse effect of unspecified antiepileptic and sedative-hypnotic drugs, initial encounter; Y92.239 Unspecified place in hospital as the place of occurrence of the external cause; Z87.891 Personal history of nicotine dependence; Z80.0 Family history of malignant neoplasm of digestive organs; Z82.49 Family history of ischemic heart disease and other diseases of the circulatory system; Z86.73 Personal history of transient ischemic attack (TIA), and cerebral infarction without residual deficits; Z79.82 Long term (current) use of aspirin; Z79.02 Long term (current) use of antithrombotics/antiplatelets; Z88.0 Allergy status to penicillin; Z95.5 Presence of coronary angioplasty implant and graft; Z78.1 Physical restraint status
CPT/HCPCS: 70450; 70496; 70498; 71045; 74176; 80048; 80061; 82607; 82962; 83036; 84443; 85027; 85347; 85610; 85730; 87070; 92978; 93005; 93458; 93799; 93880; 97116; 97163; 97167; C1725; C1753; C1760; C1769; C1874; C1887; C1894; C9600; Q9967